=== PATIENT | female | born 1955 | race Caucasian/White ===

== ENCOUNTER 2023-01-03 13:40 | Outpatient (AMB) | payer OTHER, MEDICARE, SELFPAY ==
--- NOTE | 2023-01-03 14:21 | A.OFFVIS_ITS ---
Intake VS Expanded 01/03/23 14:22 01/12/23 13:44 Height 5 ft 8 in 5 ft 8 in Weight 216 lb 14.958 oz 217 lb BMI 33.0 33.0 Intake Visit Reasons: Diabetes Medication List - Last Reconciled 01/12/[address], LDN dulaglutide (Trulicity) 1.5 mg subcut QWEEK metformin 500 mg PO TID HPI Nutrition Presentation Details Pt presents for MNT for T2DM . The Pt was referred by PCP, La Nena Porras MD, from [facility] Equation Height 5 ft 8 in Weight 217 lb Resting Metabolic Rate 1582.01 Calculated Activity Level Mild Activity Calories Needed to Maintain Weight 2175.26 Diagnosis Nutrition problem #1 food nutri know defi As related to (etiology) #1 diagnosis As evidenced by (sign/symptom) #1 knowledge deficit of diet Most Recent Diabetes Results: 2 No Data to Display [facility] Medical History (Updated 01/12/23 @ 13:[address], LDN) Dyslipidemia Assessment & Plan Assessment & Plan (1) Type 2 diabetes mellitus with kidney complication, without long-term current use of insulin: Code(s): E11.29 - Type 2 diabetes mellitus with other diabetic kidney complication Plan: wt: 99 kg Est kcal needs as per MSJ: 2175 (40% carb, 30% protein/fat) Est fluid needs as per 25-30 ml/d: 2500 Est prot per day as per 1 g/kg bw: 99 Recommend fiber intake : 8-10 g per day and gradually increase to 25-28 g per day for women and 35-38 g for men or as tolerated Recommend sodium intake per day : less than 1500 mg less than 2000 mg Educated patient on: ( R = reviewed V = verbalizes understanding N/R = needs review N/A = not applicable * Food sources of carbohydrate, adequate serving sizes and its role in various health conditions: R * Differences between complex carbohydrates a simple carbohydrates, role of fiber in diet: R * Differences between types of fats and role in diet (mono on saturated fat fatty acids, saturated fatty acids, trans fats): R * Food sources of sodium in salt and healthy modifications for heart health in kidney health: R * Vitamins and minerals: R * Healthy plate method concept: R = * Physical activity: Benefits a precaution: R * Hypoglycemia protocol (rule of 15): R * Dietary prevention of Hyperglycemia: R Patient Instructions: Follow healthy plate method at dinner time Reduce on saturated fats see meal plan as reference Coding Level of Care Code Nutr Indiv Intake (74107) Diagnoses Type 2 diabetes mellitus with kidney complication, without long-term current use of insulin E11.29 Time Spent (min) 30
[2023-01-03 14:22] VITALS: BMI 33.0
[2023-01-12 13:44] VITALS: BMI 33.0
== END 2023-01-03 14:56 | disposition home or self-care (01) ==
PROVIDERS: PCP Family Medicine; Visit Provider Dietitian, Registered
DX: E11.29 Type 2 diabetes mellitus with other diabetic kidney complication (principal)

== ENCOUNTER → 2023-01-03 13:40 | Outpatient (BNVA) | payer MEDICARE, OTHER, SELFPAY | PROVIDERS: PCP Family Medicine; Visit Provider Dietitian, Registered | DX: E11.29 Type 2 diabetes mellitus with other diabetic kidney complication (principal); Z71.3 Dietary counseling and surveillance | CPT/HCPCS: 97802 ==